=== PATIENT | female | born 1940 | race Caucasian/White ===

== ENCOUNTER → 2018-10-03 | Outpatient (CLI) | payer MEDICARE, OTHER ==
--- NOTE | 2018-10-03 15:31 | Diagnostic Imaging Report ---
Ventilation/perfusion lung scan Clinical Information: 77 F with history of multiple blood clots in lungs and lower extremities. Recent diagnosis of pulmonary hypertension in 05/2018. COPD and progressive STACK. Comparison: None available Discussion: Xenon-133 gas 15.7 mCi was administered via inhalation. Dynamic images of the lungs in the posterior projection were obtained through single breath, equilibrium, and washout phases. Distribution of tracer activity is irregular throughout the lungs. There are no segmental ventilatory defects. Washout of tracer is diffusely delayed with bibasilar air trapping. Perfusion images of the lungs were obtained in multiple projections following intravenous administration of approximately 5.5 mCi of Tc-99m MAA. Distribution of tracer is markedly irregular throughout the lungs. The contours of the lungs are well demarcated. There are no segmental perfusion defects of any size. The cardiomediastinal silhouette is unremarkable. Images of the head show no abnormal accumulation of tracer in the cerebral hemispheres. Impression: Scan findings represent a VERY LOW probability for acute pulmonary embolic disease based on the PIOPED II criteria. Scan evidence of obstructive lung disease. The irregular distribution of perfusion is more heterogeneous than the ventilation pattern and although not the typical features of CTEPH is worrisome for CTEPH. Signed by: Dr. Laura Jose M.D. on 10/03/2018 3:27 PM
== END ==
LOC: NM 10:52
PROVIDERS: ATTEND Internal Medicine Critical Care Medicine
DX: I27.82 Chronic pulmonary embolism (principal)
CPT/HCPCS: 78582